=== PATIENT | female | born 1955 | race Caucasian/White ===

== ENCOUNTER → 2017-03-14 | Outpatient (CLI) | payer BC, OTHER | END | disposition home or self-care (01) | LOC: MAMMO 12:54 | PROVIDERS: ATTEND Family Medicine | DX: Z12.31 Encounter for screening mammogram for malignant neoplasm of breast (principal) | CPT/HCPCS: 77063; G0202 ==

== ENCOUNTER → 2018-03-20 | Outpatient (CLI) | payer OTHER ==
--- NOTE | 2018-03-21 20:37 | MAM ---
EXAM DESCRIPTION: 3D Screening BILATERAL : Digital Mammography. CLINICAL HISTORY: 62 years Female ANNUAL SCREENING . No personal history of breast cancer or complaints. Mother with bilateral breast cancer. Remote family history of breast cancer. Childbirth. Postmenopausal 20 years. No HRT. Lifetime risk of developing breast cancer (Tyrer-Cuzick model)(%): 14.3. COMPARISON: Bilateral screening digital breast tomosynthesis 03/14/2017. TECHNIQUE: Bilateral CC and MLO projection full-field images, digital tomosynthesis mammographic technique. Bilateral digital 2-D full-field MLO images. CAD not available for tomosynthesis or 2-D images. FINDINGS: The breast parenchymal density pattern is: Scattered areas of fibroglandular density. No skin thickening or nipple retraction. Bilateral solitary microcalcifications. Bilateral nodular densities. Bilateral axillary lymph nodes. No new focal, stellate mass or density, focal asymmetry , and no suspicious microcalcifications bilaterally. Stable mammograms compared to prior study. IMPRESSION: Benign exam. BIRAD CATEGORY: 2 BENIGN FINDINGS. RECOMMENDATIONS: FOLLOW UP: Routine digital bilateral mammographic screening, one year interval from March 2018. Written communication explaining the IMPRESSION and follow-up, will be mailed to the patient and referring health care provider. According to the [employer], yearly mammograms are recommended starting at age 40 and continuing as long as a woman is in good health. Any breast change noted on a breast self-exam should be reported promptly to the patient's healthcare provider. Breast MRI is recommended for women with an approximately 20-25% or greater lifetime risk of breast cancer, including women with a strong family history of breast or ovarian cancer and women who have been treated for Hodgkin's disease. A negative mammographic report should not delay tissue diagnosis in patients with significant clinical history or physical findings. Extremely dense breast tissue limits the sensitivity of digital mammography. Electronically signed by: Gregorio Hernandez MD 03/21/2018 8:35 PM CERTIFIED SURGICAL ASSISTANT
== END ==
LOC: MAMMO 08:30
PROVIDERS: ATTEND Family Medicine
DX: Z12.31 Encounter for screening mammogram for malignant neoplasm of breast (principal)

== ENCOUNTER 2019-01-01 17:36 | Emergency (ER) | payer OTHER ==
[2019-01-01 18:54] VITALS: TEMP 98.4
[2019-01-01 19:11] VITALS: O2SAT 99
--- NOTE | 2019-01-01 19:49 | RAD ---
EXAM: XR Right Shoulder Complete, 2 or More Views CLINICAL HISTORY: shoulder pain TECHNIQUE: Two or more views of the right shoulder. COMPARISON: No relevant prior studies available. FINDINGS: Limitations: None. Bones/joints: Unremarkable. No acute fracture. No dislocation. Soft tissues: Unremarkable. IMPRESSION: No acute findings. Electronically signed by: Mary Anne Mckeon MD 01/01/2019 7:48 PM CDT
--- NOTE | 2019-01-01 19:58 | ED.PDOC ---
History of Present Illness - General Chief Complaint: Upper Extremity Injury Stated Complaint: right shoulder pain Time Seen by Provider: 01/01/19 18:49 Source: patient Exam Limitations: no limitations - History of Present Illness Initial Comments: the patient is a 63-year-old female presenting to emergency room secondary to right shoulder pain for the last couple of weeks. The patient reports that she started having this discomfort while she was at work reaching under something to work on a computer. She has since had some popping in the shoulder and some pain with certain movements. Range of motion and strength are actually preserved. She does have some tenderness to palpation over the rhomboid muscle and the infraspinatus muscle. She is neurovascularly intact. No bruising. No palpable deformity. Timing/Duration: other - 2 weeks Severity: moderate Improving Factors: immobilization Worsening Factors: movement Associated Symptoms: denies symptoms Allergies/Adverse Reactions: Allergies Pseudoephedrine Allergy (Verified 01/01/19 18:47) Home Medications: Ambulatory Orders Alprazolam 0.25 mg PO DAILY PRN 01/01/19 Cyclobenzaprine HCl [Flexeril] 5 mg PO TID PRN #20 tab 01/01/19 Losartan Potassium & Hydrochlo [Losartan Potassium/Hydroc 50-12.5 mg] 1 tab PO DAILY 01/01/19 Montelukast [Singulair] 10 mg PO DAILY 01/01/19 Trazodone HCl 150 mg PO BEDTIME 01/01/19 Zolpidem Tartrate 10 mg PO BEDTIME 01/01/19 Review of Systems - Review of Systems Constitutional: States: no symptoms reported EENTM: States: no symptoms reported Respiratory: States: no symptoms reported Cardiology: States: no symptoms reported Gastrointestinal/Abdominal: States: no symptoms reported Genitourinary: States: no symptoms reported Musculoskeletal: States: see HPI Skin: States: no symptoms reported Neurological: States: no symptoms reported Endocrine: States: no symptoms reported All other Systems: No Change from Baseline Past Medical History (General) - Patient Medical History Hx Seizures: No Hx Stroke: No Hx Dementia: No Hx Asthma: No Hx Cardiac Disorders: No Hx Congestive Heart Failure: No Hx Hypertension: Yes Hx Thyroid Disease: No Hx Diabetes: No Surgical History: Hysterectomy, other - Social History Hx Tobacco Use: No Family Medical History - Family History Mother Family History: No Known Physical Exam - Physical Exam General Appearance: Alert, Comfortable, No apparent distress Eye Exam: bilateral normal Ears, Nose, Throat: hearing grossly normal Neck: full range of motion, supple Respiratory: no respiratory distress, no accessory muscle use Cardiovascular/Chest: normal peripheral pulses, no edema Peripheral Pulses: radial,right: 2+, radial,left: 2+ Rectal Exam: deferred Back Exam: no CVA tenderness, other - right rhomboid tenderness to palpation. Right infraspinatus tenderness to palpation. 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 X-ray of the shoulder appears benign. The patient most likely has a rotator cuff strain and rhomboid muscle strain. She needs to do range of motion exercises and stretches to help reduce muscle spasm. Based on her strength and complete range of motion I do not believe that she has a muscle tear. Topical heat may help in the form of a heat pad or icy hot or Biofreeze. Motrin can also help reduce inflammation. She'll be written for some Flexeril for as needed use as a muscle relaxer for when the pain is at its worst. She should expect some discomfort for the next 3-4 weeks. ER warnings were given. Departure - Departure Clinical Impression: Rotator cuff strain Qualifiers: Encounter type: initial encounter Laterality: right Qualified Code(s): S46.011A - Strain of muscle(s) and tendon(s) of the rotator cuff of right shoulder, initial encounter Rhomboid muscle strain Qualifiers: Encounter type: initial encounter Qualified Code(s): S29.012A - Strain of muscle and tendon of back wall of thorax, initial encounter Disposition: Discharge to Home or Self Care Condition: Fair Departure Forms: ED Discharge - Pt. Copy, Patient Portal Self Enrollment Instructions: Rotator Cuff Injury, Shoulder Rehab Exercises, Phase 1, Rotator Cuff Tendinitis Stretching Exercises Diet: regular diet Activity: increase activity as tolerated Referrals: Neil Perez MD [Primary Care Provider] - 1-2 Weeks Prescriptions: Cyclobenzaprine HCl [Flexeril] 5 mg PO TID PRN #20 tab PRN Reason: Muscle Spasms Home Medications: Ambulatory Orders Alprazolam 0.25 mg PO DAILY PRN 01/01/19 Cyclobenzaprine HCl [Flexeril] 5 mg PO TID PRN #20 tab 01/01/19 Losartan Potassium & Hydrochlo [Losartan Potassium/Hydroc 50-12.5 mg] 1 tab PO DAILY 01/01/19 Montelukast [Singulair] 10 mg PO DAILY 01/01/19 Trazodone HCl 150 mg PO BEDTIME 01/01/19 Zolpidem Tartrate 10 mg PO BEDTIME 01/01/19 Additional Instructions: the patient is a 63-year-old female presenting to the emergency room secondary to persistent right shoulder pain over the last couple of weeks since injuring it while at work. X-ray of the shoulder appears benign. The patient most likely has a rotator cuff strain and rhomboid muscle strain. She needs to do range of motion exercises and stretches to help reduce muscle spasm. Based on her strength and complete range of motion I do not believe that she has a muscle tear. Topical heat may help in the form of a heat pad or icy hot or Biofreeze. Motrin can also help reduce inflammation. She'll be written for some Flexeril for as needed use as a muscle relaxer for when the pain is at its worst. She should expect some discomfort for the next 3-4 weeks. ER warnings were given.
[2019-01-01 20:26] VITALS: BP 146/102
== END 2019-01-01 20:25 | disposition home or self-care (01) ==
LOC: ER 17:36 → EDSTATUS 17:37 → ER 20:25
DX: S46.011A Strain of muscle(s) and tendon(s) of the rotator cuff of right shoulder, initial encounter (principal); S29.012A Strain of muscle and tendon of back wall of thorax, initial encounter; I10 Essential (primary) hypertension; X50.9XXA Other and unspecified overexertion or strenuous movements or postures, initial encounter; Y99.0 Civilian activity done for income or pay; Y92.69 Other specified industrial and construction area as the place of occurrence of the external cause; Z88.8 Allergy status to other drugs, medicaments and biological substances